=== PATIENT | female | born 1950 | race Caucasian/White ===

== ENCOUNTER 2018-06-17 06:11 | Day surgery (SDC) | payer OTHER | END 2018-06-17 11:00 | disposition home or self-care (01) | LOC: AMB-ENDOS 06:11 | DX: D12.2 Benign neoplasm of ascending colon (principal); D12.4 Benign neoplasm of descending colon; K57.30 Diverticulosis of large intestine without perforation or abscess without bleeding; K64.8 Other hemorrhoids ==

== ENCOUNTER 2018-12-23 06:35 | Day surgery (SDC) | payer OTHER | END 2018-12-23 12:05 | disposition home or self-care (01) | LOC: AMB-ENDOS 06:35 | DX: D12.4 Benign neoplasm of descending colon (principal) ==

== ENCOUNTER 2020-02-16 07:00 | Day surgery (SDC) | payer OTHER | END 2020-02-16 12:20 | disposition home or self-care (01) | LOC: AMB-ENDOS 07:00 | PROVIDERS: ATTEND Surgery | DX: K64.4 Residual hemorrhoidal skin tags (principal); Z20.828 Contact with and (suspected) exposure to other viral communicable diseases ==